=== PATIENT | female | born 1955 | race Caucasian/White ===

== ENCOUNTER 2017-09-15 11:36 | Emergency (ER) | payer MEDICAID, OTHER ==
[~2017-09-15] VITALS: Ht 162.6 cm; Wt 68.6 kg
[2017-09-15] MEDS ORDERED: MORPHINE SULFATE 4 MG/ML, 1ML ONE ×2 (12:12→14:47)
[2017-09-15] MEDS: MORPHINE SULFATE 4 MG/ML, 1ML IVPush PRN ×2 (12:14→14:51)
[2017-09-15] MEDS ORDERED: ONDANSETRON 2MG/ML, 2ML IVPush ONE (12:30)
[2017-09-15 16:05] VITALS: BP 125/56
== END 2017-09-15 16:21 | disposition home or self-care (01) ==
LOC: ED 14:18
DX: S52.572A Other intraarticular fracture of lower end of left radius, initial encounter for closed fracture (principal); S80.02XA Contusion of left knee, initial encounter; W01.0XXA Fall on same level from slipping, tripping and stumbling without subsequent striking against object, initial encounter; Y93.89 Activity, other specified; Y92.89 Other specified places as the place of occurrence of the external cause; Y99.8 Other external cause status
CPT/HCPCS: 29125; 73090; 73110; 73564; 96374; 96375; 96376; 99284; J2405